=== PATIENT | female | born 1950 | race Caucasian/White ===

== ENCOUNTER → 2016-11-03 | Outpatient (CLI) | payer BC ==
[~2016-11-03] MED LIST: AMBIEN10 MG PO; CARAFATE1 G PO; COZAAR100 MG PO; CYMBALTA PO; EXFORGE 5-320 M1 TAB PO; HYDROCODON-ACE1 EAC5; INDERAL LA160 MG PO; LEVAQUIN750 MG PO; LIPITOR40 MG PO; LIPITOR80 MG PO; LOSARTAN-HCTZ1 EAC2 PO; NITROFURANTOIN100 M3 PO; NORCO 10-325 TA1 TAB PO; PANTOPRAZOLE SO40 MG PO; PAROXETINE HCL40 M1 PO; PAXIL30 MG PO; PINK BISMUTH PO; PROBIOTIC1 EAC1 PO; PROPRANOLOL PO; TEKTURNA HCT 301 TA1 PO; THORAZINE25 MG PO; ZOFRAN8 MG PO
--- NOTE | ~2016-11-03 | MY29 ---
[facility] A Service of [facility] & [facility] RADIOLOGY TEXT RESULTS PATIENT: GLENNA ZAVALA LOCATION: [facility] : 54 UNIT #: [id number] AGE: [address]: Hannah Neumann MD SEX: F ORDER DR: [id number] [facility] [address] [place], [place] [address] [id number] O MR#: [id number] Acc #: [id number] NAME: GLENNA ZAVALA : 1950 SEX: F STUDY DATE/TIME: 11/03/2016 15:51 UNIT: [facility] ROOM: STUDY DESCRIPTION: MY AGUILAR SCREENING W/ CAD BILAT Attending Physician: Hannah Neumann M.D. Referring Physician: Hannah Neumann M.D. Ordering Physician: Hannah Neumann M.D. Primary Care Physician: Hannah Neumann M.D. MEDICAL IMAGING REPORT This report is preliminary unless electronic signature is present EXAM Bilateral digital screening mammogram with CAD. COMPARISON May 02, 2015, February 02, 2012, March 29, 2010, September 11, 2008 and May 13, 2007. INDICATIONS Breast cancer screening. 66-year-old asymptomatic female who reports 2 aunts with postmenopausal breast cancer. FINDINGS There are scattered fibroglandular densities. Best seen on MLO view there is a left breast focal asymmetry, which localizes approximately the 11 o'clock posterior third. Only seen on left MLO view in the inferior posterior third, there are 3 adjacent asymmetries 1 of which appears to have a lucent center, possibly reflecting an oil cyst. IMPRESSION 1. No mammographic evidence of malignancy in the right breast. 2. Left breast focal asymmetry as well as 3 left breast asymmetries only seen on MLO view. Further evaluation with spot compression, CC and spot compression MLO view is recommend in addition to full field ML view. This may be followed by left breast ultrasound. Patients over the age of 40 are entered into a reminder system with target due date for the next mammogram. A result letter will also be sent to the patient. BIRADS: 0 - Incomplete; need additional imaging evaluation and/or prior mammograms for comparison. [facility] A Service of [facility] & [facility] RADIOLOGY TEXT RESULTS PATIENT: GLENNA ZAVALA LOCATION: [facility] : 54 UNIT #: [id number] AGE: [address]: Hannah Neumann MD SEX: F ORDER DR: Dictated by... Jim Rodriguez M.D. THIS IS AN ELECTRONICALLY VERIFIED REPORT Jim Rodriguez M.D. at 11/06/2016 10:10 PM JACEK/shira TD: 11/04/2016 06:43 JOB #: [id number] MEDICAL IMAGING REPORT Page 1 of 1 COPY
== END | disposition home or self-care (01) ==
LOC: CWCC 14:55
DX: Z12.31 Encounter for screening mammogram for malignant neoplasm of breast (principal); Z80.3 Family history of malignant neoplasm of breast; N64.89 Other specified disorders of breast
CPT/HCPCS: G0202

== ENCOUNTER → 2016-11-10 | Outpatient (CLI) | payer BC ==
--- NOTE | ~2016-11-10 | US24 ---
[facility] A Service of [facility] & [facility] RADIOLOGY TEXT RESULTS PATIENT: GLENNA ZAVALA LOCATION: [facility] : 54 UNIT #: [id number] AGE: [address]: Hannah Neumann MD SEX: F ORDER DR: [id number] [facility] [address] [place], [place] [address] [id number] O MR#: [id number] Acc #: [id number] NAME: GLENNA ZAVALA : 1950 SEX: F STUDY DATE/TIME: 11/10/2016 15:46 UNIT: [facility] ROOM: STUDY DESCRIPTION: US Breast Unilateral Attending Physician: Hannah Neumann M.D. Referring Physician: Hannah Neumann M.D. Ordering Physician: Hannah Neumann M.D. Primary Care Physician: Hannah Neumann M.D. MEDICAL IMAGING REPORT This report is preliminary unless electronic signature is present EXAM Unilateral breast ultrasound. HISTORY 66-year-old female with a left breast focal asymmetry as well as left breast asymmetry seen on screening mammography. Additional imaging evaluation was recommended. The patient also incidentally reported left breast pain today. FINDINGS Please see [id number] for full report. BIRADS: 1 Negative Dictated by... Jim Rodriguez M.D. THIS IS AN ELECTRONICALLY VERIFIED REPORT Jim Rodriguez M.D. at 11/21/2016 7:47 AM Arvind TD: 11/11/2016 01:58 JOB #: [id number] MEDICAL IMAGING REPORT Page 1 of 1 COPY
--- NOTE | ~2016-11-10 | MY24 ---
[facility] A Service of [facility] RADIOLOGY TEXT RESULTS PATIENT: GLENNA ZAVALA LOCATION: [facility] : 54 UNIT #: [id number] AGE: [address]: Hannah Neumann MD SEX: F ORDER DR: [id number] [facility] [address] [place] [address] [place], [place] [address] [id number] O MR#: [id number] Acc #: [id number] NAME: GLENNA ZAVALA : 1950 SEX: F STUDY DATE/TIME: 11/10/2016 15:46 UNIT: [facility] ROOM: STUDY DESCRIPTION: NATHANAEL DOMINGUEZMehnaz W/ CAD UNI LT Attending Physician: Hannah Neumann M.D. Referring Physician: Hannah Neumann M.D. Ordering Physician: Hannah Neumann M.D. Primary Care Physician: Hannah Neumann M.D. MEDICAL IMAGING REPORT This report is preliminary unless electronic signature is present EXAM Left digital diagnostic mammogram COMPARISON Screening mammogram dated November 03, 2016; May 02, 2015; February 02, 2012; March 29, 2010; September 11, 2008; May 13, 2007. INDICATION 66-year-old female with a left breast focal asymmetry as well as left breast asymmetry seen on screening mammography. Additional imaging evaluation was recommended. The patient also incidentally reported left breast pain today. FINDINGS Spot compression CC, spot compression MLO, and full field ML views of the left breast were obtained today. There are scattered fibroglandular densities. Findings of initial concern do not persist consistent with summation artifact and normal fibroglandular tissues. Sonographic evaluation is performed to further investigate the patient's left breast pain which spans from the 1-6 o'clock position when I began my sonographic evaluation, but the patient initially described focal pain in the upper outer quadrant of the left breast. Sonographic evaluation was performed by the technologist and by myself. I personally scanned throughout the 1-6 o'clock positions of the left breast. This was negative. I also performed physical exam in the area of patient concern. There is palpable nodularity throughout without discrete palpable mass or suspicious skin change. IMPRESSION No mammographic or sonographic evidence of malignancy in the left breast. The findings of initial concern are consistent with summation artifact on STS. [facility] A Service of [facility] & [facility] / [facility] RADIOLOGY TEXT RESULTS PATIENT: GLENNA ZAVALA LOCATION: [facility] : 54 UNIT #: [id number] AGE: [address]: Hannah Neumann MD SEX: F ORDER DR: mammography, and there is no imaging findings to explain the patient's breast pain. Patient was counselled on etiologies and possible treatments of breast pain and was instructed report any new or worsening complaint to her primary care physician. Otherwise continued annual screen mammography is recommended. Patients over the age of 40 are entered into a reminder system with target due date for the next mammogram. A result letter will also be sent to the patient. BIRADS: 1 Negative Dictated by... Jim Rodriguez M.D. THIS IS AN ELECTRONICALLY VERIFIED REPORT Jim Rodriguez M.D. at 11/18/2016 2:39 AM Arvind TD: 11/11/2016 01:58 JOB #: [id number] MEDICAL IMAGING REPORT Page 1 of 1 COPY
== END | disposition home or self-care (01) ==
LOC: CWCC 15:11
DX: R92.8 Other abnormal and inconclusive findings on diagnostic imaging of breast (principal); N64.4 Mastodynia
CPT/HCPCS: 76641; G0206